=== PATIENT | female | born 1970 | race Caucasian/White ===

== ENCOUNTER 2025-02-17 21:43 | Emergency (ER) | payer BC, OTHER ==
[~2025-02-17] VITALS: Ht 162.6 cm; Wt 95.3 kg
[2025-02-17 22:04] VITALS: TEMP 98
[2025-02-18] MEDS: ORPHENADRINE CITRATE 30 MG/ML VIAL IM ONE (00:09)
[2025-02-18] MEDS: DEXAMETHASONE SOD PHOS 10 MG/1 ML VIAL IM ONE (00:09)
[2025-02-18] MEDS: ACETAMIN/BUTALBITAL/CAFFEINE TAB PO ONE (00:09)
[2025-02-18] MEDS ORDERED: MEDROL4 M2 PO (00:47)
[2025-02-18] MEDS ORDERED: CYCLOBENZAPRINE5 MG PO (00:47)
[2025-02-18] MEDS ORDERED: FIORICET 50-301 EACH PO (00:47)
[2025-02-18 00:54] VITALS: PULSE 84; RESP 16; O2SAT 100
[2025-02-19] MEDS ORDERED: FIORICET 50-301 EACH PO (17:33)
== END 2025-02-18 00:56 | disposition home or self-care (01) ==
LOC: ER 23:41
DX: G44.229 Chronic tension-type headache, not intractable (principal); M53.82 Other specified dorsopathies, cervical region; K21.9 Gastro-esophageal reflux disease without esophagitis; J45.909 Unspecified asthma, uncomplicated
CPT/HCPCS: 70450; 72125; 99283; J1100; J2360